=== PATIENT | female | born 1965 | race Caucasian/White ===

== ENCOUNTER → 2024-11-26 | Outpatient (CLI) | payer SELFPAY | END | disposition home or self-care (01) | PROVIDERS: PCP Family Medicine; Visit Provider Physician Assistant | DX: R30.0 Dysuria (principal) | CPT/HCPCS: 87086 ==

== ENCOUNTER 2024-11-28 02:45 | Emergency (ER) | payer OTHER, SELFPAY ==
--- NOTE | 2024-11-28 03:40 | CT_ITS ---
EXAM: CT scan of the abdomen and pelvis. CLINICAL HISTORY: Bilateral back pain. COMPARISON: None. TECHNIQUE: Axial CT scan images with intravenous contrast. Reformatted coronal and sagittal images. One or more dose reduction techniques were used (e.g., Automated exposure control, adjustment of the mA and/or kV according to patient size, use of iterative reconstruction technique. CONTRAST: 100 cc of Isovue-300 50 were injected intravenously. FINDINGS: Prior splenectomy. Mildly enlarged/edematous pancreatic tail, possibly mild changes of acute pancreatitis. Thickened stomach, probably gastritis. Uncomplicated colonic diverticulosis. Hepatic steatosis. The visualized lung bases are unremarkable. Normal gallbladder and extrahepatic biliary system. Normal bilateral adrenal glands. Normal size of the right kidney. There is no right renal mass. There are no right renal calculi. There is no right hydronephrosis. Normal visualized right ureter. Normal size of the left kidney. There is no left renal mass. There are no left renal calculi. There is no left hydronephrosis. Normal visualized left ureter. Normal small intestine. The appendix is visualized and appears normal. There is no demonstrated peritoneal fluid. Calcified atheromatous plaques of the abdominal aorta. Normal inferior vena cava. Normal retroperitoneum. Normal urinary bladder. There is no pelvic mass lesion or lymphadenopathy. There is no pelvic fluid. Normal abdominal wall. Diffuse spondylosis. CT/Abdomen/Pelvis WITH Contrast IMPRESSION: Prior splenectomy. Mildly enlarged/edematous pancreatic tail, possibly mild changes of acute pancr eatitis. Thickened stomach, probably gastritis. Uncomplicated colonic diverticulosis. Hepatic steatosis. I discussed the findings with Dr. Poe in the emergency department at 4:20 a.m . EST. Reading Location: [place] [id number]
--- OUTSIDE RECORDS SUMMARY | 2024-11-28 04:31 | XMS RPT_ITS | CCD ---
Author Organization [facility] Care Team Providers Care Filters Assembler Name Role Phone Unavailable Primary Care Provider UnavailKarri Rojas Attending Unavailable Hermilo Mitchell Primary Care Unavailable Hermilo Mitchell Referring Unavailable Karri Rodrigez Attending Unavailable Hermilo Mitchell Primary Care Unavailable Medications Current Medications Medication Drug Class(es) Dates Sig (Normalized) Sig (Original) ofloxacin 3 mg/ml otic solution (1 source) Quinolone Antimicrobial Start: 07-24-2023 End: 07-31-2023 ofloxacin (FLOXIN) 0.3 % otic solution Use 10 Drops in the left ear once daily for 7 days. 5 mL 0 07/24/2023 07/31/2023 Active Problems Problem Classification Problem Date Documented Da te Episodic/Chronic Genitourinary symptoms and ill-defined conditions (2 sources) Dysuria; Translations: [Dysuria] Onset: 11-26-2024 Episodic Other ear and sense organ disorders (1 source) Impacted cerumen in right ear; Translations: [Impacted cerumen, right ear] 07-24-2023 Episodic Superficial injury; contusion (1 source) Abrasion of ear region; Translations: [Abrasion of left ear, initial encounter] 07-24-2023 Episodic Results Test Name Value Interpretation Reference Range Facil ity Urgent Care Visit Reporton 0 11-26-2024 Urgent Care Visit Report [facility] [address], [address] [place], [place] [address] OFFICE VISIT Date of Service: 11/26/24 MR#: [id number] Acct: [id number] Name: YVONNE SPRAGUE Rep #: [id number] : 1965 Provider: ERNESTINA Alas Age/Sex: 59/F Location: [email or web address] Status: Signed Intake Vital Signs 07/28/23 17:02 11/26/24 14:38 Height 5 ft 3 in BP 112/60 Position Sitting Respiration 16 Pulse 68 Temp 101.8 F H Temp Source Oral Pulse Oximetry (%) 98 Oxygen Delivery Method room air Intake Visit Reasons: CONCERN FOR UTI Accompanied by: Self Allergies No Known Allergies Allergy (Verified 11/26/24 14:47) Medications ???Medication ???Instructions ???Recorded ???Confirmed ???Type ciprofloxacin HCl 500 mg tablet 500 mg PO BID #14 tabs 11/26/24 Rx fluconazole 200 mg tablet 200 mg PO DAILY #1 TAB 11/26/24 Rx Nurse's Note: Patient has concerns for a UTI. Patient states since Monday she can't really pee. Patient also states that she itches down there and she thinks she has itched herself raw. Patient has tried Azo on sat and stopped it yesterday and it didn't help. Patient also has tried Azo yeast and itch and that is 3 times a day and she can tell when its about time to take another one. Patient states she also used a Monastat 7 day 1 use cream. Patient states the pain isn't as bad. Patient has a fever. [facility] Social History (Updated 07/28/23 @ 16:57 by Angela Angeles) Smoking Status: Current every day smoker tobacco type: cigarettes alcohol intake: never HPI HPI Details: YVONNE SPRAGUE, is a 59 F who presents to the office today for initial evaluation at the [facility] for approximately 4 day history of vaginal pruritus (assisted w/ Monistat) and dysuria and urinary frequency with suprapubic pressure and right mid-low back pain and fever. No complaints of fever, chills, sweats, lightheadedness/dizzi ness, nausea/vomiting, chest pain/shortness of breath/dyspnea on exertion, or midback pain. No changes in color/ character of urine or stool; no urethral/ vaginal discharge. AZO tried w/o assist. No other associated symptoms and no alleviating/aggravati ng factors. ROS Const Constitutional: No other (As above) Exam Const General: cooperative, healthy appearing and no acute distress; warm to touch Orientation: alert, awake Chest Chest palpation inspection: normal inspection of the chest Resp Effort Inspection: normal respiratory effort and able to speak in complete sentences Cardio Rate: regular rate Pulses: radial pulses present GI Inspection: normal to inspection Palpation: soft and tender suprapubic (Patient describes upon self-palpation) General: R CVA tenderness Skin General: no rashes or lesions noted Neuro General: patient alert, patient awake Cognition: normal cognition Speech: speech normal Psych Appearance: grossly normal Mental Status: mental status grossly normal Mood: congruent mood Affect: normal affect Speech and Movement: speech and movement normal Attitude: cooperative Diagnoses Urinary tract infection with hematuria N39.0 Assessment and Plan Assessment and Plan (1) Urinary tract infection with hematuria: Status: Acute Plan: See POC results; urine sent to lab for C/S. Cipro and Diflucan (after Cipro completed if vaginal osmar symptoms persist) as prescribed today. Supportive measures as instructed today. Follow-up with PCP in 2-3 days should symptoms not improve, ED sooner should symptoms only worsen or any other concerns develop. Patient states acknowledging understanding all the above. Results POC Urinalysis Dip (Clinic) Office Urine Color YELLOW Last Edit by Ariadna Erickson MA on 11/26/24 14:53 Office Urine Clarity Clear Last Edit by Ariadna Erickson MA on 11/26/24 14:53 Office Urine Glucose Negative Last Edit by Ariadna Erickson MA on 11/26/24 14:53 Office Urine Ketones Negative Last Edit by Ariadna Erickson MA on 11/26/24 14:53 Off Ur Spec [place] 1.010 Last Edit by Ariadna Erickson MA on 11/26/24 14:53 Office Urine pH 6.5 Last Edit by Ariadna Erickson MA on 11/26/24 14:53 Office Urine Bilirubin Negative Last Edit by Ariadna Erickson MA on 11/26/24 14:53 Office Urine Urobilinogen 0.2 mg/dL Last Edit by Ariadna Erickson MA on 11/26/24 14:53 Office Urine Blood Hemolyzed Last Edit by Ariadna Erickson MA on 11/26/24 14:53 Office Urine Blood Hemolyzed Large Last Edit by Ariadna Erickson MA on 11/26/24 14:53 Office Urine Protein Trace Last Edit by Ariadna Erickson MA on 11/26/24 14:53 Office Urine Nitrate Negative Last Edit by Ariadna Erickson MA on 11/26/24 14:53 Off Ur Leukocytes Positive Last Edit by Ariadna Erickson MA on 11/26/24 14:53 Coding Level of Care Code Off vis,est,level 3 Assessment and Plan Assessment and P (more content not included)... Normal [facility] CNOVon 07-24-2023 CNOV Office Visit ([facility] ) YVONNE SPRAGUE ([id number]) 1965 F Date Time Provider Department 07/24/23 4:45 PM NORBERT COSME [facility] During your visit today, we recorded the following information about you: Temperature Pulse Respiration Blood pressure 98.9 degrees 90/minute 16/minute 122/74 Weight 53.8 kg Norbert Cosme PA-C 07/24/2023 5:15 PM Signed Use Debrox drops over the counter in the right ear for a week. May return her to have the ear flushed again or followup with ent. Norbert Cosme PA-C 07/24/2023 5:23 PM Signed This note was created using [employer]ero[employer]. Subjective Yvonne Sprague is a 58 year old female. HPI Patient presents with bilateral ears feeling plugged off-and-on for the past month. She had tried to flush your ears 2 to 3 weeks ago with a home kit. She states the left one is a little painful as well. No cough, runny nose or congestion. No sore throat. No fever. She does have some decreased hearing in her ears. She has had problems with earwax previously. Review of Systems Constitutional: Negative. HENT: Positive for ear discharge, ear pain and hearing loss. Negative for congestion, postnasal drip, rhinorrhea, sinus pressure, sinus pain and sore throat. Respiratory: Negative. Cardiovascular: Negative. Gastrointestinal: Negative. All other systems reviewed and are negative. PAST MEDICAL HISTORY Diagnosis Date NEGATIVE MEDICAL HISTORY Current Outpatient Medications Medication Sig Dispense Refill ofloxacin (FLOXIN) 0.3 % otic solution Use 10 Drops in the left ear once daily for 7 days. 5 mL 0 No current facility-administered medications for this visit. PAST SURGICAL HISTORY Procedure Laterality Date LIG/TRNSXJ FLP TUBE ABDL/VAG APPR UNI/BI Tubal ligation PAST SURGICAL HISTORY OF left lower leg surgery SPLENECTOMY TOTAL SEPARATE PROCEDURE Splenectomy No family history on file. Social History Tobacco Use Smoking status: Every Day Packs/day: 0.50 Years: 20.00 Additional pack years: 0.00 Total pack years: 10.00 Types: Cigarettes Substance Use Topics Alcohol use: Yes Comment: rarely Drug use: No Objective BP 122/74 Pulse 90 Temp 37.2 ?C (98.9 ?F) Resp 16 Wt 53.8 kg (118 lb 9.7 oz) LMP 09/29/2006 SpO2 100% Physical Exam Vitals reviewed. Constitutional: Appearance: Normal appearance. HENT: Head: Normocephalic and atraumatic. Right Ear: There is impacted cerumen. Ears: Comments: Has a partial impaction of the left external auditory canal. TM is visible and intact. No middle ear effusion. Right ear has a total impaction, not able to see TM on the right. Nose: Nose normal. Cardiovascular: Rate and Rhythm: Normal rate and regular rhythm. Skin: General: Skin is warm and dry. Neurological: Mental Status: She is alert. Assessment and Plan ASSESSMENT/PLAN: 1. Impacted cerumen of right ear - ICD9: 380.4, ICD10: H61.21 (primary diagnosis) Attempted to have nursing staff flush the ear with warm water. Not able to remove the impaction on the right side, small abrasion noted after flushing on the left side. I will place her on ofloxacin in the left ear and discussed getting Debrox for the impaction on the right. May come back in a week after using the Debrox to have it flushed again or follow-up with ENT. Patient agreeable with plan. - CONSULT TO ENT 2. Abrasion of left ear canal, initial encounter - ICD9: 910.0, ICD10: S00.412A JANNY Doran Melissa, MA 07/24/2023 5:21 PM Signed Ambulatory Ear Lavage Pre-treatment: Warm water Treatment: Both ears Equipment and Irrigation solution and Volume used: Single use syringe with single use irrigation tip Water Return flow appearance: Other removed nothing Patient tolerated procedure: yes Tympanic membrane assessment: Tympanic membrane assessed by LIP pre and post procedure Danii Roque MA Allergies As of Date: 07/24/2023 (No Known Allergies) Date Reviewed: 07/24/2023 Reviewed by: Danii Roque MA - Fully Assessed Reason for Visit: Ear Problem [38] Cmt: bilateral ears plugged off and on x couple weeks Primary Visit Diagnosis:Impacted cerumen of right ear [H61.21] Other Visit Diagnosis:Abrasion of left ear canal, initial encounter [S00.412A] Order(s):ofloxacin (FLOXIN) 0.3 % otic solutionUse 10 Drops in the left ear once daily for 7 days.Disp: 5 mLRfl: 0 CONSULT TO ENT [9008] Order #: [id number]: 1 FUTURE Prescriptions as of 07/24/2023 - ofloxacin (FLOXIN) 0.3 % otic solution Use 10 Drops in the left ear once daily for 7 days. Problem List As Of Date: 07/24/2023 (None) Other instructions from your clinician: Use Debrox drops over the counter in the right ear for a week. May return her to have the ear flushed again or followup with ent. Visit Notes: >> Danii Roque MA Mon July 24, 2023 5:20 PM Status: Signed Ambu (more content not included)... Normal [facility] Vital Signs Date Time Vital Sign Value Performing Clinician Trell barbosa 07-24-2023 16:47-0400 Body temperature 98.91 [degF] Norbert Cosme PA-C Work Phone: [facility] 07-24-2023 16:47-0400 Body weight 53.8 kg Norbert Cosme PA-C Work Phone: [facility] 07-24-2023 16:47-0400 Diastolic blood pressure 74 mm[Hg] Norbert Cosme PA-C Work Phone: [facility] 07-24-2023 16:47-0400 Heart rate 90 /min Norbert Cosme PA-C Work Phone: [facility] 07-24-2023 16:47-0400 Respiratory rate 16 /min Norbert Cosme PA-C Work Phone: [facility] 07-24-2023 16:47-0400 SaO2% (BldA) [Mass fraction] 100 % Norbert Cosme PA-C Work Phone: [facility] 07-24-2023 16:47-0400 Systolic blood pressure 122 mm[Hg] Norbert Cosme PA-C Work Phone: [facility] Encounters Encounter Date Encounter Type Care Provider Facility Start: 11-26-2024 End: 11-26-2024 ambulatory Karri Cruz Vachristy Facility:[facility] Start: 07-24-2023 End: 07-24-2023 ambulatory Facility:[facility] Start: 07-24-2023 End: 07-24-2023 Patient encounter procedure Norbert Cosme PA-C Work Phone: [facility] Comment on above: Impacted cerumen of right ear (Primary Dx); Abrasion of left ear canal, initial encounter Plan of Treatment Date Care Activity Detail Author Start: 12-12-2028 Urine microalbumin profile DTaP,Tdap,Td Vaccine (2 - Td or Tdap) [facility] Start: 03-06-2023 Behavioral Health Screening Behavioral Health Screening [facility] Start: 11-04-2022 Covid-19 Vaccine ( season) Covid-19 Vaccine ( season) [facility] Start: 04-27-2022 Shingrix Vaccine (2 of 2) Shingrix V accine (2 of 2) [facility] Start: 12-13-2019 Pneumococcal vaccination Pneum ococcal Vaccine (2 of 2 - PCV) [facility] Start: 08-04-2011 Screening for malign ant neoplasm of cervix [facility] Start: 2010 Diabetes Screening Diabetes Screenin g [facility] Start: 2010 Lipid panel Lipid Screening [facility] Start: 2010 Screening for malign ant neoplasm of colon [facility] Start: 08-19-2007 Screening for malign ant neoplasm of breast Mammogram Screening [facility] Start: 1984 Hepatitis B Vaccine (1 of 3 - 19+ 3-dose series) Hepatitis B Vaccine (1 of 3 - 19+ 3-dose series) [facility] Start: 1983 Hepatitis C screening Hepatitis C Sc adriano [facility] Start: 1983 HIV screening HIV Screening Anjelica michele [facility] Payers Date Payer Category Payer Self-pay 2024 Self-pay [id number] 2022 Unknown [employer] [id number] 2022-Present [phone] [address] [place] [address] Other [id number] 2022 Unknown [id number] Unknown [id number] Unknown [id number] Social History Date Type Detail Facility Start: 08-03-2006 Tobacco smoking stat [facility] Smokes tobacco daily [facility] Start: 08-03-2006 Cigarettes smoked cu rrent (pack per day) - Reported 0.5 [facility] Start: 10-20-2021 Alcohol intake Current drinke r of alcohol (finding) [facility] Start: 1965 Sex Assigned At Not on file [facility] Gender identity Not on file [facility] inic Progress note 07-24-2023 Note Date & Type Note Facility 07-24-2023 Note HNO ID: [id number] Author: NORBERT COSME PA-C Service: ? Author Type: Physician [employer] Type: Progress Notes Filed: 07/24/2023 17:23 Note Text: This note was created using NoteWriter. Subjective Yvonne Sprague is a 58 year old female. HPI Patient presents with bilateral ears feeling plugged off-and-on for the past month. She had tried to flush your ears 2 to 3 weeks ago with a home kit. She states the left one is a little painful as well. No cough, runny nose or congestion. No sore throat. No fever. She does have some decreased hearing in her ears. She has had problems with earwax previously. Review of Systems Constitutional: Negative. HENT: Positive for ear discharge, ear pain and hearing loss. Negative for congestion, postnasal drip, rhinorrhea, sinus pressure, sinus pain and sore throat. Respiratory: Negative. Cardiovascular: Negative. Gastrointestinal: Negative. All other systems reviewed and are negative. PAST MEDICAL HISTORY Diagnosis Date NEGATIVE MEDICAL HISTORY Current Outpatient Medications Medication Sig Dispense Refill ofloxacin (FLOXIN) 0.3 % otic solution Use 10 Drops in the left ear once daily for 7 days. 5 mL 0 No current facility-administered medications for this visit. PAST SURGICAL HISTORY Procedure Laterality Date LIG/TRNSXJ FLP TUBE ABDL/VAG APPR UNI/BI Tubal ligation PAST SURGICAL HISTORY OF left lower leg surgery SPLENECTOMY TOTAL SEPARATE PROCEDURE Splenectomy No family history on file. Social History Tobacco Use Smoking status: Every Day Packs/day: 0.50 Years: 20.00 Additional pack years: 0.00 Total pack years: 10.00 Types: Cigarettes Substance Use Topics Alcohol use: Yes Comment: rarely Drug use: No Objective BP 122/74 Pulse 90 Temp 37.2 ?C (98.9 ?F) Resp 16 Wt 53.8 kg (118 lb 9.7 oz) LMP 09/29/2006 SpO2 100% Physical Exam Vitals reviewed. Constitutional: Appearance: Normal appearance. HENT: Head: Normocephalic and atraumatic. Right Ear: There is impacted cerumen. Ears: Comments: Has a partial impaction of the left external auditory canal. TM is visible and intact. No middle ear effusion. Right ear has a total impaction, not able to see TM on the right. Nose: Nose normal. Cardiovascular: Rate and Rhythm: Normal rate and regular rhythm. Skin: General: Skin is warm and dry. Neurological: Mental Status: She is alert. Assessment and Plan ASSESSMENT/PLAN: 1. Impacted cerumen of right ear - ICD9: 380.4, ICD10: H61.21 (primary diagnosis) Attempted to have nursing staff flush the ear with warm water. Not able to remove the impaction on the right side, small abrasion noted after flushing on the left side. I will place her on ofloxacin in the left ear and discussed getting Debrox for the impaction on the right. May come back in a week after using the Debrox to have it flushed again or follow-up with ENT. Patient agreeable with plan. - CONSULT TO ENT 2. Abrasion of left ear canal, initial encounter - ICD9: 910.0, ICD10: S00.412A Norbert Cosme PA-C [facility] Nurse Note 07-24-2023 Danii Roque MA - 07/24/2023 5:20 PM EDT Note Date & Type Note Facility 07-24-2023 Nurse Note Ambulatory Ear Lavage Pre-treatment: Warm water Treatment: Both ears Equipment and Irrigation solution and Volume used: Single use syringe with single use irrigation tip Water Return flow appearance: Other removed nothing Patient tolerated procedure: yes Tympanic membrane assessment: Tympanic membrane assessed by LIP pre and post procedure Danii Roque MA [facility] Nurse Note 07-24-2023 Danii Roque MA - 07/24/2023 5:20 PM EDT Note Date & Type Note Facility 07-24-2023 Nurse Note Ambulatory Ear Lavage Pre-treatment: Warm water Treatment: Both ears Equipment and Irrigation solution and Volume used: Single use syringe with single use irrigation tip Water Return flow appearance: Other removed nothing Patient tolerated procedure: yes Tympanic membrane assessment: Tympanic membrane assessed by LIP pre and post procedure Danii Roque MA documented in this encounter [facility] History of Present illness Narrative 07-24-2023 Norbert Cosme PA-C - 07/24/2023 5:19 PM EDT Note Date & Type Note Facility 07-24-2023 History of Presen t illness Narrative This note was created using NoteWriter. Subjective Yvonne Sprague is a 58 year old female. HPI Patient presents with bilateral ears feeling plugged off-and-on for the past month. She had tried to flush your ears 2 to 3 weeks ago with a home kit. She states the left one is a little painful as well. No cough, runny nose or congestion. No sore throat. No fever. She does have some decreased hearing in her ears. She has had problems with earwax previously. Review of Systems Constitutional: Negative. HENT: Positive for ear discharge, ear pain and hearing loss. Negative for congestion, postnasal drip, rhinorrhea, sinus pressure, sinus pain and sore throat. Respiratory: Negative. Cardiovascular: Negative. Gastrointestinal: Negative. All other systems reviewed and are negative. PAST MEDICAL HISTORY Diagnosis Date NEGATIVE MEDICAL HISTORY Current Outpatient Medications Medication Sig Dispense Refill ofloxacin (FLOXIN) 0.3 % otic solution Use 10 Drops in the left ear once daily for 7 days. 5 mL 0 No current facility-administered medications for this visit. PAST SURGICAL HISTORY Procedure Laterality Date LIG/TRNSXJ FLP TUBE ABDL/VAG APPR UNI/BI Tubal ligation PAST SURGICAL HISTORY OF left lower leg surgery SPLENECTOMY TOTAL SEPARATE PROCEDURE Splenectomy No family history on file. Social History Tobacco Use Smoking status: Every Day Packs/day: 0.50 Years: 20.00 Additional pack years: 0.00 Total pack years: 10.00 Types: Cigarettes Substance Use Topics Alcohol use: Yes Comment: rarely Drug use: No Objective BP 122/74 Pulse 90 Temp 37.2 C (98.9 F) Resp 16 Wt 53.8 kg (118 lb 9.7 oz) LMP 09/29/2006 SpO2 100% Physical Exam Vitals reviewed. Constitutional: Appearance: Normal appearance. HENT: Head: Normocephalic and atraumatic. Right Ear: There is impacted cerumen. Ears: Comments: Has a partial impaction of the left external auditory canal. TM is visible and intact. No middle ear effusion. Right ear has a total impaction, not able to see TM on the right. Nose: Nose normal. Cardiovascular: Rate and Rhythm: Normal rate and regular rhythm. Skin: General: Skin is warm and dry. Neurological: Mental Status: She is alert. Assessment and Plan ASSESSMENT/PLAN: 1. Impacted cerumen of right ear - ICD9: 380.4, ICD10: H61.21 (primary diagnosis) Attempted to have nursing staff flush the ear with warm water. Not able to remove the impaction on the right side, small abrasion noted after flushing on the left side. I will place her on ofloxacin in the left ear and discussed getting Debrox for the impaction on the right. May come back in a week after using the Debrox to have it flushed again or follow-up with ENT. Patient agreeable with plan. - CONSULT TO ENT 2. Abrasion of left ear canal, initial encounter - ICD9: 910.0, ICD10: S00.412A Norbert Cosme PA-C documented in this encounter [facility] Instructions 07-24-2023 Patient Instructions Note Date & Type Note Facility 07-24-2023 Instructions Norbert Cosme PA-C - 07/24/2023 5:15 PM EDT Use Debrox drops over the counter in the right ear for a week. May return her to have the ear flushed again or followup with ent. documented in this encounter [facility] Evaluation note Note Date & Type Note Facility Evaluation note Diagnosis Impacted cerumen of right ear- Primary Impacted cerumen Abrasion of left ear canal, initial encounter documented in this encounter [facility] Reason for Referral Specialty Diagnoses / Procedures Referred By Billy cruz Referred To Contact Ent - Otolaryngology Diagnoses Impacted cerumen of right ear Procedures CONSULT TO ENT OFFICE/OUTPATIENT [facility] 60 MINUTES Norbert Cosme PA-C [address] [place] [address] Referral ID Status Reason Start Date Expiration Date Visits Requested Visits Authorized [id number] Authorized PCP Requested Referral 07/24/2023 07/23/2024 1 1 Summary Purpose Family History No Family History Records FoundNo Family History Records Found Advance Directives No Advanced Directives Records FoundNo Advanced Directives Records Found Additional Source Comments Source Comments (unrecognize d section and content) In the event this informatio n is protected by the Federal Confidentiality of Alcohol and Drug Abuse Patient Records regulations: The Federal rules restrict any use of the information to criminally investigate or prosecute any alcohol or drug abuse patient.[facility] Reason for Visit (unrecogniz ed section and content) Reason Comments Ear Problem bilateral ears plugg ed off and on x couple weeks INFORMATION SOURCE (unrecogn ized section and content) DATE CREATED AUTHOR 07/26/2023 [facility] DATE CREATED AUTHOR AUTHOR'S ORGANIZ ATION 11/27/2024 [facility] FOR RECORDS PERTAINING TO PATIENTS WHO ARE OR HAVE BEEN ENROLLED IN A CHEMICAL DEPENDENCY/SUBSTANCEABUSE PROGRAM, SOME INFORMATION MAY BE OMITTED. This clinical summary was aggregated from multiple sources. Caution should be exercised in using it in the provision of clinical care. This summary normalizes information from multiple sources, and as a consequence, information in this document may materially change the coding, format and clinical context of patient data. In addition, data may be omitted in some cases. CLINICAL DECISIONS SHOULD BE BASED ON THE PRIMARY CLINICAL RECORDS. [employer] [facility]. provides no warranty or guarantee of the accuracy or completeness of information in this document.
[2024-11-28 06:03] LABS: AST(SGOT) 67 U/L (<=31); Alanine Aminotransfer ALT/SGPT 55 U/L (<=34); Albumin, Serum 4.2 g/dL (3.5-5.0); Alkaline Phosphatase 96 U/L (35-104); Anion Gap 13 (5-15); BUN 8 mg/dL (4-19); BUN/Creat Ratio 12.3 RATIO (10-20); Calcium,Total 9.6 mg/dL (7.6-11.0); Carbon Dioxide 22.5 mmol/L (21.0-32.0); Chloride 99 mmol/L (98-108); Globulin 3.3 g/dL (2.2-4.2); Glucose 131 mg/dL (70-99); Lipase 30 U/L (13-75); Potassium 4.0 mmol/L (3.3-5.1)
[2024-11-28 06:05] LABS: Color, Urine Yellow (Yellow); Glucose, Dipstick NEGATIVE (Normal); Ketone-Dipstick Negative (Negative); Leukocyte Esterase-Dipstick 500 /ul (Negative); Mucous, Urine 1+ /hpf (<or=2+); Nitrite-Dipstick Negative (Negative); Occult Blood-Urine 250 /ul (Negative); Protein-Dipstick 30 mg/dl (Negative); Red Blood Cells-Urine 10-25 SEEN /hpf (0-5); Specific Gravity, Urine 1.020 (1.002-1.030); Squamous Epithelial Cells - UA 0-5 SEEN /hpf (5-10); Urine Bilirubin Dipstick Negative (Negative)
[2024-11-28 06:12] LABS: Hematocrit 42.5 % (37-47); Hemoglobin 14.9 g/dL (12.0-15.0); Immature Granulocytes Count 0.070 X10^3/uL (0.0-0.0); Mean Corp Hgb Conc 35.1 g/dL (32-36); Mean Corpuscular Volume 88.7 fL (81-99); Mean Platelet Vol. 10.0 fl (6.2-12.0); NRBC Flagged by Analyzer 0 % (0-5); POSITIVE COUNT YES; POSITIVE MORPHOLOGY YES; Platelet Count 307 K/mm3 (150-450); RBC Distribution Width CV 14.4 % (11.6-14.6); RBC Distribution Width SD 46.5 fl (35.1-43.9); Red Blood Count 4.79 M/mm3 (4.2-5.4); White Blood Count 9.9 K/mm3 (4.4-11.0)
[2024-11-28 06:13] LABS: Anisocytosis 1+; Differential Comment SCANNED; Differential Indicated SCAN CRITERIA MET; Howell-Jolly Body 1+; Polychromasia 1+
--- NOTE | 2024-11-28 06:21 | EDS_ITS ---
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 She states that on Monday she noticed urinary frequency and dysuria. She states that she tried taking [id number] Azo and cranberry pills and flushing her system. She states there was no improvement by Monday so she went to an urgent care. She states she was informed she has a urinary tract infection and was placed on Cipro. She states she has had the antibiotic for 2 days but she feels like her symptoms are worsening and secondary to this comes in for evaluation. PFSH PFSH no medical history Home Medications ?Medication ?Instructions ?Recorded ?Last Taken ?Type ciprofloxacin HCl 500 mg tablet 500 mg PO BID #14 tabs 11/26/24 Unknown Rx fluconazole 200 mg tablet 200 mg PO DAILY #1 TAB 11/26 Unknown Rx Allergy/AdvReac Type Severity Reaction Status Date / Time No Known Allergies Allergy Verified 11/26/24 14:47 Social History (Updated 07/28/23 @ 16:57 by Angela Angeles) Smoking Status: Current every day smoker tobacco type: cigarettes alcohol intake: never ROS ROS ED Constitutional Constitutional ED: Reports chills and fever(s) ENT ENT ED: Denies sore throat Cardiovascular Cardiovascular: Denies chest pain Respiratory/Chest Respiratory/Chest: Denies cough or dyspnea Gastrointestinal Gastrointestinal: Reports abdominal pain and nausea; Denies diarrhea or vomiting Genitourinary Genitourinary ED: Reports dysuria and urinary frequency; Denies hematuria Musculoskeletal Musculoskeletal: Reports back pain and myalgias Integumentary Denies rash Neurologic Neurologic: Denies headache(s) Hematologic/Lymphatic Hematologic/Lymphatic: Denies easy bleeding or easy bruising EXAM Physical Exam Const Positive well nourished and well developed General Appearance ED: well developed; Negative for pallor HEENT HEENT Narrative: Normocephalic atraumatic Eyes PERRL and EOMs intact bilaterally General Eye ED: Negative for scleral icterus Neck supple Neck Narrative: No nuchal rigidity or meningeal signs Resp normal respiratory effort and clear to auscultation bilaterally Cardio regular rate and regular rhythm Rate: other Other Details: Regular rate and rhythm without murmurs rubs or gallops Radial and carotid pulses are equal and symmetric GI non-distended and no masses GI Narrative: Abdomen is soft and nondistended with hyperactive bowel sounds. There is mild pain with palpation in the suprapubic region. No voluntary guarding or rigidity or pulsatile mass. No organomegaly to suggest urinary retention. Auscultation: hyperactive bowel sounds Palpation: soft Back/Spine Back/Spine Narrative: Positive bilateral CVA pain noted Extremity normal to inspection Neuro oriented x3, CN's II-XII intact bilaterally and no sensory deficits noted Sensorium / Orientation: alert Motor Exam: strength 5/5 throughout Psych mental status grossly normal Skin no rashes or lesions noted and no wounds Skin Narrative: No overlying soft tissue changes to suggest trauma or infection General Skin Exam: Negative for jaundice or pallor MDM MDM MDM Narrative Medical decision making narrative: Patient arrived to the ER with stable vitals. She reported 6 days of urinary symptoms such as urgency frequency and dysuria. She reports that she has had antibiotics for 2 days without symptom improvement and now is reporting bilateral back pain. Differential diagnosis is for drug-resistant UTI leading to pyelonephritis versus potential acute kidney injury biliary colic pancreatitis or urosepsis. Secondary to this basic labs were obtained with repeat urine sample and CT scan with IV contrast. White count is normal at 9.9 there is no left shift as her neutrophil count is 6.3 this coupled with stable blood pressure and no fever would go against development of systemic infection/sepsis. There is no sign of acute kidney injury or electrolyte abnormality. Lipase is normal at 30 going against pancreatitis. Urine sample however still shows changes consistent with infection. The CT scan revealed no sign of kidney stone or fat stranding around the kidneys. The radiologist did mention fullness of the pancreas which could correlate with early pancreatitis. However the patient does not have pain in the mid epigastric region and her lipase is normal and therefore this does not clinically correlate. Therefore at this time as she does not have SHAQUILLE or urosepsis and CT scan does not reveal any sign of obstruction or perforation or abscess the patient will be started on Rocephin in the ER. She was advised to stop the Cipro and begin Bactrim and the urine was sent for culture. However at this time with stable vitals no signs of urosepsis or SHAQUILLE do not feel she warrants inpatient treatment and can be tried on a new outpatient regimen History & Record Review Discussion w/independent historian: Patient Lab Data Attestation: I reviewed the patient's lab results. Labs: Laboratory Results - last 24 hr 11/28/24 11/28/24 03:26 03:55 WBC 9.9 RBC 4.79 Hgb 14.9 Hct 42.5 MCV 88.7 MCH 31.1 MCHC 35.1 RDW Std Deviation 46.5 H RDW Coeff of Nan 14.4 Plt Count 307 MPV 10.0 Immature Gran % (Auto) 0.700 Neut % (Auto) 63.8 Lymph % (Auto) 19.2 [place] % (Auto) 10.9 H Eos % (Auto) 5.0 Baso % (Auto) 0.4 Absolute Neuts (auto) 6.3 Absolute Lymphs (auto) 1.90 Nucleated RBC % 0 Differential Comment SCANNED Platelet Estimate ADEQUATE Polychromasia 1+ Anisocytosis 1+ [place] Bodies 1+ Sodium 135 Potassium 4.0 Chloride 99 Carbon Dioxide 22.5 Anion Gap 13 BUN 8 Creatinine 0.62 L Est GFR (MDRD) Non-Af 102 BUN/Creatinine Ratio 12.3 Glucose 131 H Calcium 9.6 Total Bilirubin 0.19 AST 67 H ALT 55 H Alkaline Phosphatase 96 Total Protein 7.5 Albumin 4.2 Globulin 3.3 Albumin/Globulin Ratio 1.3 Lipase 30 Urine Color Yellow Urine Clarity Clear Urine pH 6.0 Ur Specific [place] 1.020 Urine Protein 30 H Urine Glucose (UA) NEGATIVE Urine Ketones Negative Urine Occult Blood 250 H Urine Nitrite Negative Urine Bilirubin Negative Urine Urobilinogen Normal Ur Leukocyte Esterase 500 H Urine RBC 10-25 SEEN Urine WBC 25-50 SEEN Ur Squamous Epith Cells 0-5 SEEN Amorphous Sediment 1+ Urine Bacteria 2+ Urine Mucus 1+ Discharge Plan Triage ED Provider: Arsenio Poe Dx/Rx/DC Orders Clinical Impression: Acute pyelonephritis, Nausea Instructions: ED Pyelonephritis, Female (Adult) Prescriptions: No Action ciprofloxacin HCl 500 mg tablet 500 mg PO BID Qty: 14 0RF fluconazole 200 mg tablet 200 mg PO DAILY Qty: 1 0RF Rx Instructions: do not take until day AFTER completing CIPROFLOXACIN, and only if symptoms of vaginal osmar persist Primary Care Provider: Hermilo Mitchell Referrals: Hermilo Mitchell MD [Primary Care Provider, [facility]] Activity Restrictions/Additional Instructions: Please stop the Cipro as your urine sample still shows signs of infection and therefore the bacteria is most likely resistant to the Cipro. Begin taking the Bactrim as directed to resolve the infection. It will typically take 2 to 3 days for symptom improvement. Return to the ER should you have any further concerns Print Language: [place] Disposition Disposition: Home, Self Care
== END 2024-11-28 05:42 | disposition home or self-care (01) ==
PROVIDERS: Emergency Provider Emergency Medicine; PCP Family Medicine; Visit Provider Emergency Medicine
DX: N10 Acute pyelonephritis (principal); R11.0 Nausea
CPT/HCPCS: 36415; 74177; 80053; 81001; 83690; 85025; 87086; 96365; 96375; 99285; Q9967; A4216; J2405

== ENCOUNTER 2024-12-03 04:22 | Inpatient (IN) | payer OTHER, SELFPAY ==
[2024-12-03] VITALS (15 sets, daily range): BP systolic 85–150; BP diastolic 38–93; PULSE 50–88; RESP 16–18; TEMP 36.4–36.8; O2SAT 92–99; BMI 18.6
--- NOTE | 2024-12-03 04:35 | EDS_ITS ---
HPI History of Present Illness Chief Complaint: Flank Pain Informant: patient Narrative Narrative: Patient is a 59-year-old female history of tobacco use and prior splenectomy presenting as well as recent diagnosis of pyelonephritis (on Bactrim and taking Percocet as needed for pain) presenting with worsening right flank pain. Patient started with UTI symptoms about a week ago and was placed on ciprofloxacin. She was seen in our ER 5 days ago (11/28/2024) and had a workup including lab work, urinalysis and CT of abdomen pelvis with IV contrast. Her workup was concerning for pyelonephritis with urinalysis that showed 2+ bacteria and 25-50 white blood cells however culture ultimately was negative. She had a CT which showed a mildly enlarged/edematous pancreatic tail which could be possible mild she has acute pancreatitis, thickened stomach and uncomplicated colonic diverticulosis as well as fatty liver. Remainder of CT was negative. Patient was discharged home. She states she is not feeling better and has been feeling worse over the past 24 hours. She denies any fevers however since her ER visit. She has constant pain in her right flank/back area as well as wrapping around to her right upper quadrant. She has had nausea and vomiting. She states she has had a lot of belching. She denies any dysuria, frequency or hematuria. Denies any abnormal vaginal discharge or bleeding. Denies any change with movement but notes that sometimes standing helps. She took Percocet at 5 PM last night and then at 1 AM this morning (approximately 3 hours prior to arrival) with no relief which is what prompted her to come to the emergency room. She also took some Zofran about an hour prior to arrival. States her last bowel movement was a couple days ago. States she has been passing gas. No other complaints or concerns at this time. Reports tobacco use as well as occasional alcohol use. Prior similar symptoms: Yes [facility] Medical History History of broken leg Home Medications ?Medication ?Instructions ?Recorded ?Last Taken ?Type fluconazole 200 mg tablet 200 mg PO DAILY #1 TAB 11/26 Unknown Rx Held on 12/03/24. Instructions: after cipro ondansetron 4 mg disintegrating 4 mg PO TID PRN PRN na usea/vomiting 12/03/24 Unknown History tablet oxycodone-acetaminophen 5 mg-325 1 tab PO Q6H PRN PRN pain 12/03/24 Unknown History mg tablet sulfamethoxazole 800 1 tab PO BID 12/03/24 Unknow n History mg-trimethoprim 160 mg tablet Allergy/AdvReac Type Severity Reaction Status Date / Time No Known Allergies Allergy Verified 12/03/24 04:23 Surgical History Hx of splenectomy Hx of hysterectomy Social History Smoking Status: Current every day smoker tobacco type: cigarettes alcohol intake: never ROS ROS ED Constitutional Constitutional ED: Denies chills or fever(s) Cardiovascular Cardiovascular: Denies chest pain Respiratory/Chest Respiratory/Chest: Denies cough or dyspnea Gastrointestinal Gastrointestinal: Reports abdominal pain, nausea and vomiting; Denies diarrhea Genitourinary Genitourinary ED: Denies dysuria, hematuria or urinary frequency Musculoskeletal Musculoskeletal: Reports back pain Integumentary Denies rash Neurologic Neurologic: Denies paresthesias or weakness Hematologic/Lymphatic Hematologic/Lymphatic: Denies easy bleeding or easy bruising EXAM Physical Exam Const Vital Signs: 12/03/24 04:23 12/03/24 04:26 12/03/24 05:26 Temperature 98.1 F 98.1 F 98.1 F Temperature Source Oral Oral Oral Pulse Rate 74 88 65 Respiratory Rate 18 18 16 Blood Pressure 150/90 H 150/93 H 126/73 H Blood Pressure Mean 110 112 90 Pulse Ox 98 99 95 Oxygen Delivery Method Room Air Room Air Room Air 12/03/24 06:00 12/03/24 07:42 Temperature 98.1 F 98.2 F Temperature Source Oral Oral Pulse Rate 66 58 L Respiratory Rate 16 16 Blood Pressure 143/73 H 137/71 H Blood Pressure Mean 96 93 Pulse Ox 98 97 Oxygen Delivery Method Room Air Room Air Positive well nourished and well developed Constitutional Narrative: Uncomfortable. General Appearance ED: well developed HEENT Reports moist mucous membranes Eyes PERRL General Eye ED: Negative for scleral icterus Neck supple Chest Wall inspection of chest normal and palpation of chest normal Resp normal respiratory effort and clear to auscultation bilaterally Cardio regular rate, regular rhythm and no murmurs GI non-distended Inspection: Negative for abdominal distention Auscultation: hypoactive bowel sounds Palpation: soft and tender epigastric and RUQ; Negative for guarding Back/Spine General Back: CVA tenderness right Thoracic Spine / Upper Back: paraspinal muscle tenderness right T9, T10, T11 and T12; Negative for thoracic spinal tenderness Extremity normal to inspection General Extremety ED: Negative for edema General Extremity: Negative for edema Neuro oriented x3 Sensorium / Orientation: alert Motor Exam: Negative for general weakness Psych mental status grossly normal Skin no rashes or lesions noted and no wounds General Skin Exam: Negative for jaundice MDM MDM MDM Narrative Medical decision making narrative: Patient evaluated for continued/worsening right flank pain with prior diagnosis of pyelonephritis. Denies any acute fever. She also had a CT that did show some mild gastritis as well as edema of the pancreas however prior evaluation she is not having upper abdominal pain and had a normal lipase. Patient is given IV morphine for pain control, Zofran and fluids. Will recheck labs including CBC, BMP, liver panel, lipase and urinalysis. Culture reviewed from 11/28 showed no growth. Differential includes pyelonephritis, renal colic, biliary colic, constipation, muscle skeletal pain and pancreatitis. Patient has significant leukocytosis 15.8 with left shift (granulocytes 1.3%). Is elevation of her platelets which is nonspecific. Hemoglobin is normal. CMP is largely normal. Her bilirubin is normal, lipase is normal and alkaline phosphatase is minimally elevated at 112 which is nonspecific with a barely elevated AST of 35. ALT is normal. Urinalysis shows 100 leukocyte esterase 2+ bacteria with some slight contamination. Not sure if she has a partially treated infection at this point. Will resend off urine culture. CT abdomen pelvis is pending. Patient given dose of IV Rocephin given leukocytosis and shift. Urinalysis looks mildly improved. Will resend off her urine culture. Will plan on admission as patient is requiring further morphine for pain control and concern for failure of outpatient treatment with pyelonephritis. Patient is agreeable with this. CT does show findings of gastritis. Given IV Protonix in the emergency room. In addition she has moderate mild fecal residue and some mild stercoral colitis noted. Likely needs GI cleanout. Case discussed with hospitalist for admission, Dr. Mccoy. Lab Data Labs: Laboratory Results - last 24 hr 12/03/24 12/03/24 04:44 05:35 WBC 15.8 H RBC 4.44 Hgb 13.5 Hct 39.9 MCV 89.9 MCH 30.4 MCHC 33.8 RDW Std Deviation 47.9 H RDW Coeff of Nan 14.6 Plt Count 560 H MPV 10.3 Immature Gran % (Auto) 1.300 H Neut % (Auto) 54.1 Lymph % (Auto) 33.2 [place] % (Auto) 7.5 Eos % (Auto) 2.5 Baso % (Auto) 1.4 H Absolute Neuts (auto) 8.6 H Absolute Lymphs (auto) 5.25 H Nucleated RBC % 0 Differential Comment SCANNED Platelet Estimate MOD INC RBC Morphology NORM C+C Sodium 135 Potassium 5.0 Chloride 102 Carbon Dioxide 19.5 L Anion Gap 13 BUN 9 Creatinine 0.68 L Estim Creat Clear Calc 67.08 Est GFR (MDRD) Non-Af 100 BUN/Creatinine Ratio 13.8 Glucose 139 H Lactic Acid 1.1 Calcium 9.3 Total Bilirubin 0.26 Direct Bilirubin < 0.08 AST 35 H ALT 34 Alkaline Phosphatase 112 H Total Protein 7.6 Albumin 3.7 Globulin 3.9 Lipase 26 Urine Color Yellow Urine Clarity Clear Urine pH 6.0 Ur Specific [place] 1.015 Urine Protein Negative Urine Glucose (UA) Normal Urine Ketones Negative Urine Occult Blood 25 H Urine Nitrite Negative Urine Bilirubin Negative Urine Urobilinogen Normal Ur Leukocyte Esterase 100 H Urine RBC 0-5 SEEN Urine WBC 0-5 SEEN Ur Squamous Epith Cells 0-5 SEEN Amorphous Sediment 1+ Urine Bacteria 2+ Urine Mucus 1+ Radiography Diagnostic Testing: Clinical Impression(s) from Imaging Studies Abdomen/Pelvis CT 12/03/24 06:00 IMPRESSION: Prior splenectomy. Thickened stomach, probably gastritis. Uncomplicated colonic diverticulosis. Moderate amount of fecal residue in the large bowels, probably constipation. Associated mild stercoral colitis is noted in the interim. Hepatic steatosis. Interval appearance of mild amount of free fluid in the pelvis. [facility] Discharge Plan Dx/Rx/DC Orders Clinical Impression: Acute flank pain, Failure of outpatient treatment, Acute pyelonephritis, Stercoral colitis, Gastritis Disposition Disposition: [facility]
[2024-12-03] MEDS: 0.9% Normal Saline (1000mL) 1,000 ML 999 ML IV (04:45)
[2024-12-03 04:57] LABS: Hematocrit 39.9 % (37-47); Hemoglobin 13.5 g/dL (12.0-15.0); Immature Granulocytes Count 0.210 X10^3/uL (0.0-0.0); Mean Corp Hgb Conc 33.8 g/dL (32-36); Mean Corpuscular Volume 89.9 fL (81-99); Mean Platelet Vol. 10.3 fl (6.2-12.0); NRBC Flagged by Analyzer 0 % (0-5); POSITIVE DIFFERENTIAL YES; POSITIVE MORPHOLOGY YES; Platelet Count 560 K/mm3 (150-450); RBC Distribution Width CV 14.6 % (11.6-14.6); RBC Distribution Width SD 47.9 fl (35.1-43.9); Red Blood Count 4.44 M/mm3 (4.2-5.4); White Blood Count 15.8 K/mm3 (4.4-11.0)
[2024-12-03 04:59] LABS: Differential Indicated SCAN CRITERIA MET
[2024-12-03 05:15] LABS: Lipase 26 U/L (13-75)
[2024-12-03 05:16] LABS: AST(SGOT) 35 U/L (<=31); Alanine Aminotransfer ALT/SGPT 34 U/L (<=34); Albumin, Serum 3.7 g/dL (3.5-5.0); Alkaline Phosphatase 112 U/L (35-104); Anion Gap 13 (5-15); BUN 9 mg/dL (4-19); BUN/Creat Ratio 13.8 RATIO (10-20); Bilirubin, Direct < 0.08 mg/dL (0.00-0.30); Calcium,Total 9.3 mg/dL (7.6-11.0); Carbon Dioxide 19.5 mmol/L (21.0-32.0); Chloride 102 mmol/L (98-108); Estimated Creatinine Clearance 67.08 ml/min (50-250); Globulin 3.9 g/dL (2.2-4.2); Glucose 139 mg/dL (70-99); Potassium 5.0 mmol/L (3.3-5.1)
[2024-12-03 05:43] LABS: Color, Urine Yellow (Yellow); Glucose, Dipstick Normal (Normal); Ketone-Dipstick Negative (Negative); Leukocyte Esterase-Dipstick 100 /ul (Negative); Nitrite-Dipstick Negative (Negative); Occult Blood-Urine 25 /ul (Negative); Protein-Dipstick Negative (Negative); Specific Gravity, Urine 1.015 (1.002-1.030); Urine Bilirubin Dipstick Negative (Negative)
[2024-12-03 05:49] LABS: Differential Comment SCANNED; Red Cell Morphology NORM C+C NORMAL (NORM C&C)
[2024-12-03 06:00] LABS: Red Blood Cells-Urine 0-5 SEEN /hpf (0-5)
--- NOTE | 2024-12-03 06:00 | CT_ITS ---
PROCEDURE: ABDOMEN/PELVIS W IV CONT ONLY 12/03/2024 REASON FOR EXAM: RIGHT FLANK PAIN, LEUKOCYTOSIS TECHNIQUE: Procedure Code: [id number] Modality: CT Procedure: ABDOMEN/PELVIS W IV CONT ONLY Coronal and Sagittal reconstruction series were provided. CONTRAST: Tortuous for the VOLUME: 100 mL One or more dose reduction techniques were used (e.g., Automated exposure control, adjustment of the mA and/or kV according to patient size, use of iterative reconstruction technique. RADIATION DOSE SUMMARY: CTDlvol: 4.94 mGy DLP: 234 mGycm COMPARISON: CT scan on 11/28/2024. FINDINGS: Prior splenectomy. Thickened stomach, probably gastritis. Uncomplicated colonic diverticulosis. Moderate amount of fecal residue in the large bowels, probably constipation. Associated mild stercoral colitis. Hepatic steatosis. Interval appearance of mild amount of free fluid in the pelvis. The visualized lung bases are unremarkable. Normal gallbladder and extrahepatic biliary system. Normal bilateral adrenal glands. Normal size of the right kidney. There is no right renal mass. There are no right renal calculi. There is no right hydronephrosis. Normal visualized right ureter. Normal size of the left kidney. There is no left renal mass. There are no left renal calculi. There is no left hydronephrosis. Normal visualized left ureter. Normal pancreas. Normal small intestine. The appendix is visualized and appears normal. Calcified atheromatous plaques of the abdominal aorta. Normal inferior vena cava. Normal retroperitoneum. Normal urinary bladder. There is no pelvic mass lesion or lymphadenopathy. Normal abdominal wall. Diffuse spondylosis. CT/Abdomen/Pelvis W IV Cont ONLY IMPRESSION: Prior splenectomy. Thickened stomach, probably gastritis. Uncomplicated colonic diverticulosis. Moderate amount of fecal residue in the large bowels, probably constipation. Associated mild stercoral colitis is noted in the interim. Hepatic steatosis. Interval appearance of mild amount of free fluid in the pelvis. [facility]
[2024-12-03 06:01] LABS: Mucous, Urine 1+ /hpf (<or=2+); Squamous Epithelial Cells - UA 0-5 SEEN /hpf (5-10)
[2024-12-03] MEDS: Pantoprazole Sodium 40 MG in 0.9% Normal Saline (100mL MB+) 100 ML 300 MG IV (08:09)
--- NOTE | 2024-12-03 08:09 | PCM.HP.STD ---
HPI - General General Date of Admission: 12/03/24 Date of Service: 12/03/24 Chief Complaint: Bilateral flank pain, right upper quadrant abdominal pain for 2 weeks HPI Narrative XIOMARA WILLETT, is a 59 F with history of UTI about 2 weeks ago came to ED for bilateral flank pain, diffuse abdominal pain. Patient stated it has been going for 2 weeks after she had a UTI. She was treated for UTI in the urgent care and then ED. Her right flank hurts more than left. She also complained of diffuse abdominal pain predominantly at her right upper and epigastric pain. Denies heartburn reflux symptoms. Abdominal pain is about 7-8/10 intensity, intermittent, progressively worsening with longer duration. Mild nausea but denies vomiting. No fever or chills. She has mild constipation moves her bowel in 2 to 3 days, denies hard stool/diarrhea or blood or mucus. Denies burning micturition or increased frequency. She had taken Cipro which was changed to Bactrim when she came to ED on 11/28 when she was given 1 dose of IV ceftriaxone and discharged on 10 days of Bactrim DS. Denies prior EGD. Had colonoscopy 2 to 3 years ago, outside in [facility] and as per patient was no significant abnormality See had CT abdomen pelvis which more suggestive of stercoral colitis/inflammation with significant stool burden. Currently smoker since early 20s with intermittent clicking during . Less than a pack per day. Couple wine shots on the weekends. Denies substance use [facility] Medical History History of broken leg Home Medications ?Medication ?Instructions ?Recorded ?Last Taken ?Type fluconazole 200 mg tablet 200 mg PO DAILY #1 TAB 11/26/24 Unknown Rx Held on 12/03/24. Instructions: after cipro ondansetron 4 mg disintegrating 4 mg PO TID PRN PRN nausea/vomiting 12/03/24 Unknown History tablet oxycodone-acetaminophen 5 mg-325 1 tab PO Q6H PRN PRN pain 12/03/24 Unknown History mg tablet sulfamethoxazole 800 1 tab PO BID 12/03/24 Unknown History mg-trimethoprim 160 mg tablet Allergy/AdvReac Type Severity Reaction Status Date / Time No Known Allergies Allergy Verified 12/03/24 04:23 Surgical History Hx of splenectomy Hx of hysterectomy Social History Smoking Status: Current every day smoker tobacco type: cigarettes alcohol intake: never ROS ROS Narrative Constitutional: Denies acute fatigue and weakness. No fever. HEENT: Reports systems reviewed and no addt'l complaints, except as documented Respiratory/Chest: No acute shortness of breath or respiratory distress or wheezing. CVS: No chest pain pressure or CAD history Gastrointestinal: Denies coffee ground emesis, hematemesis or vomiting. Nausea abdominal pain is chronic. Genitourinary: Denies burning urination or new urinary tract symptoms. Recent UTI 2 to 3 weeks ago Musculoskeletal: Denies acute joint pain or limited range of motion. No acute injury Neurologic: Denies seizure-like symptoms. skin: No ulcer. No rash Endocrinology: Reports systems reviewed and no addt'l complaints, except as documented Hematologic/Lymphatic: Reports systems reviewed and no addt'l complaints, except as documented Rest 14 ROS are negative except as mentioned in HPI Vital Signs Vital Signs Vital Signs: 12/03/24 04:23 12/03/24 04:26 12/03/24 05:26 Temperature 98.1 F 98.1 F 98.1 F Temperature Source Oral Oral Oral Pulse Rate 74 88 65 Respiratory Rate 18 18 16 Blood Pressure 150/90 H 150/93 H 126/73 H Blood Pressure Mean 110 112 90 Pulse Ox 98 99 95 Oxygen Delivery Method Room Air Room Air Room Air 12/03/24 06:00 12/03/24 07:42 Temperature 98.1 F 98.2 F Temperature Source Oral Oral Pulse Rate 66 58 L Respiratory Rate 16 16 Blood Pressure 143/73 H 137/71 H Blood Pressure Mean 96 93 Pulse Ox 98 97 Oxygen Delivery Method Room Air Room Air Weight Weight: 105 lb 2.568 oz Body Mass Index (BMI) 18.6 Physical Exam Narrative General: Alert, Oriented x3, Cooperative HEENT: Atraumatic, PERRLA, EOMI, Normocephalic. Oral: Oral mucosa dry no Gingival or Mucosal Lesions/ Ulcerations Neck: Supple, No JVD, Negative Carotid Bruits Chest wall/Lungs: Air entry diminished in bilateral lung bases. No crepitation/rhonchi Cardiovascular: Regular rate and rhythm, Normal S1,S2, No M/G/R Abdomen: Bowel Sounds sluggish, Soft, mild tenderness predominantly over epigastric and right upper quadrant region. No rebound tenderness. No distention : No dysuria. Bilateral, R > L, renal angle tenderness. No suprapubic tenderness. Extremities: No edema, Capillary Refill Less than 3 Seconds Skin: No rashes, No breakdown Musculoskeletal: No Tenderness to Palpation of Joints or Extremities Neurological: Cranial nerves II-XII grossly intact, DTR 2+/4. No acute focal neurological deficit. Psych/Mental Status: Normal Affect, Appropriate. Results Lab / Micro Data 12/03/24 04:44 12/03/24 04:44 Labs: Laboratory Results - last 24 hr 12/03/24 04:44: WBC 15.8 H, RBC 4.44, Hgb 13.5, Hct 39.9, MCV 89.9, MCH 30.4, MCHC 33.8, RDW Std Deviation 47.9 H, RDW Coeff of Nan 14.6, Plt Count 560 H, MPV 10.3, Immature Gran % (Auto) 1.300 H, Neut % (Auto) 54.1, Lymph % (Auto) 33.2, [place] % (Auto) 7.5, Eos % (Auto) 2.5, Baso % (Auto) 1.4 H, Absolute Neuts (auto) 8.6 H, Absolute Lymphs (auto) 5.25 H, Nucleated RBC % 0, Differential Comment SCANNED, Platelet Estimate MOD INC, RBC Morphology NORM C+C, Sodium 135, Potassium 5.0, Chloride 102, Carbon Dioxide 19.5 L, Anion Gap 13, BUN 9, Creatinine 0.68 L, Estim Creat Clear Calc 67.08, Est GFR (MDRD) Non-Af 100, BUN/Creatinine Ratio 13.8, Glucose 139 H, Lactic Acid 1.1, Calcium 9.3, Total Bilirubin 0.26, Direct Bilirubin < 0.08, AST 35 H, ALT 34, Alkaline Phosphatase 112 H, Total Protein 7.6, Albumin 3.7, Globulin 3.9, Lipase 26 12/03/24 05:35: Urine Color Yellow, Urine Clarity Clear, Urine pH 6.0, Ur Specific [place] 1.015, Urine Protein Negative, Urine Glucose (UA) Normal, Urine Ketones Negative, Urine Occult Blood 25 H, Urine Nitrite Negative, Urine Bilirubin Negative, Urine Urobilinogen Normal, Ur Leukocyte Esterase 100 H, Urine RBC 0-5 SEEN, Urine WBC 0-5 SEEN, Ur Squamous Epith Cells 0-5 SEEN, Amorphous Sediment 1+, Urine Bacteria 2+, Urine Mucus 1+ Imaging Radiology Impression Abdomen/Pelvis CT 12/03/24 06:00 IMPRESSION: Prior splenectomy. Thickened stomach, probably gastritis. Uncomplicated colonic diverticulosis. Moderate amount of fecal residue in the large bowels, probably constipation. Associated mild stercoral colitis is noted in the interim. Hepatic steatosis. Interval appearance of mild amount of free fluid in the pelvis. Reading [facility] Assessment & Plan Assessment/Plan (1) Stercoral colitis: (2) Acute flank pain: PLAN: Plan Patient is 59-year-old female admitted for bilateral flank pain, generalized abdominal pain and CT showing mild stercoral colitis 1. Bilateral flank pain, right more than left, abdominal pain probably from stercoral colitis, rule out pyelonephritis: Patient is being admitted to [facility] floor. She had CT abdomen with IV contrast in ED, which showed thickened stomach probably gastritis, large amount of fecal residue seen large bowel with mild stercoral colitis, uncomplicated colonic diverticulosis and mild free fluid in the pelvis. Bilateral kidneys no stones or hydronephrosis. Does not seem inflammation/infiltration into perinephric space but not reported in CT. Bilateral kidney and bladder ultrasound, right upper quadrant sonogram ordered. Plan: IV fluid, pain control, antibiotic Unasyn IV and laxatives/stool softener ordered. IV pantoprazole ordered. Urine culture ordered. 2. Mild leukocytosis mainly neutrophils probably due to inflammation/sterile coral colitis. Continue monitor 3. Recent UTI: Patient was on Cipro started in urgent care and then changed to Bactrim DS on 11/28, ED visit. She states currently no increased frequency urgency or burning micturition. No purulent discharge in urine. UA WBC 0-5, RBC 0 LE 100, nitrite negative. 4. DVT prophylaxis, moderate risk: Lovenox 40 mg subcu daily ordered Living will/advanced directive/end of life care: Patient does not have living will or advanced directive. She does not need a power of personal injury attorney for health after discussion of benefits/risks procedures involved with full code, DNR CC arrest and DNR CC, the patient opted for full code. Patient does want artificial life support including intubation, tube feed, ventilator and/chest compression, central venous catheter, vasopressor and DC shock if needed Total time spent in [id number] encounter in discussion of advanced directive 17 minutes. Laboratory Results 12/03/24 04:44: WBC 15.8 H, RBC 4.44, Hgb 13.5, Hct 39.9, MCV 89.9, MCH 30.4, MCHC 33.8, RDW Std Deviation 47.9 H, RDW Coeff of Nan 14.6, Plt Count 560 H, MPV 10.3, Immature Gran % (Auto) 1.300 H, Neut % (Auto) 54.1, Lymph % (Auto) 33.2, [place] % (Auto) 7.5, Eos % (Auto) 2.5, Baso % (Auto) 1.4 H, Absolute Neuts (auto) 8.6 H, Absolute Lymphs (auto) 5.25 H, Nucleated RBC % 0, Differential Comment SCANNED, Platelet Estimate MOD INC, RBC Morphology NORM C+C, Sodium 135, Potassium 5.0, Chloride 102, Carbon Dioxide 19.5 L, Anion Gap 13, BUN 9, Creatinine 0.68 L, Estim Creat Clear Calc 67.08, Est GFR (MDRD) Non-Af 100, BUN/Creatinine Ratio 13.8, Glucose 139 H, Lactic Acid 1.1, Calcium 9.3, Total Bilirubin 0.26, Direct Bilirubin < 0.08, AST 35 H, ALT 34, Alkaline Phosphatase 112 H, Total Protein 7.6, Albumin 3.7, Globulin 3.9, Lipase 26 12/03/24 05:35: Urine Color Yellow, Urine Clarity Clear, Urine pH 6.0, Ur Specific [place] 1.015, Urine Protein Negative, Urine Glucose (UA) Normal, Urine Ketones Negative, Urine Occult Blood 25 H, Urine Nitrite Negative, Urine Bilirubin Negative, Urine Urobilinogen Normal, Ur Leukocyte Esterase 100 H, Urine RBC 0-5 SEEN, Urine WBC 0-5 SEEN, Ur Squamous Epith Cells 0-5 SEEN, Amorphous Sediment 1+, Urine Bacteria 2+, Urine Mucus 1+ Clinical Impression(s) from Imaging Studies Abdomen/Pelvis CT 12/03/24 06:00 IMPRESSION: Prior splenectomy. Thickened stomach, probably gastritis. Uncomplicated colonic diverticulosis. Moderate amount of fecal residue in the large bowels, probably constipation. Associated mild stercoral colitis is noted in the interim. Hepatic steatosis. Interval appearance of mild amount of free fluid in the pelvis. Reading Location: [facility] Charges/Coding Visit Charges Inpatient E&M: 52847 Init Hosp L3 Procedures Hospitalists Procedures: 78109 Advncd Care Plan 30 Min
--- NOTE | 2024-12-03 10:11 | US_ITS ---
PROCEDURE: KIDNEY AND BLADDER 12/03/2024 REASON FOR EXAM: B/L FLANK PAIN TECHNIQUE: Procedure Code: USKI Modality: US Procedure: KIDNEY AND BLADDER COMPARISON: CT dated 11/28/2024 FINDINGS: Right kidney measures 11.7 x 4.7 x 4.2 cm. There is normal renal cortex with no calculi or hydronephrosis. Left kidney measures 10.7 x 4.9 x 5.7 cm. There is normal renal cortex with no stones or hydronephrosis. Urinary bladder are visualized partially distended measuring 77 cc. US/Kidney and Bladder IMPRESSION: Unremarkable kidneys with no obstructive uropathy. Reading Location: [place] [address]
--- NOTE | 2024-12-03 10:11 | US_ITS ---
PROCEDURE: ABDOMEN LIMITED 12/03/2024 REASON FOR EXAM: RUQ/EPIGASTRIC PAIN, BILATERAL FLANK PAIN TECHNIQUE: Procedure Code: USABDL Modality: US Procedure: ABDOMEN LIMITED COMPARISON: None FINDINGS: Liver: Grossly normal size and echotexture. Measures 18.4 cm Gallbladder: No stones, sludge, wall thickening or tenderness. Gallbladder wall measures 1.7 mm, template clerk notes a negative Myers's sign Common bile duct: Normal measuring 5.2 mm. Pancreas: Visualized portions are sonographically unremarkable. Kidneys: The right kidney measures 11.7 cm. No hydronephrosis, calculi or mass, cortex measures 1.0 cm Spleen: Previously removed . US/Abdomen Limited IMPRESSION: No suspicious sonographic findings Reading Location: [id number]
[2024-12-03] MEDS: 0.9% Normal Saline (1000mL) 1,000 ML 100 ML IV ×2 (10:32→23:00)
[2024-12-03] MEDS: Senna/Docusate Sodium 1 Tablet 2 TABLET PO ×2 (10:32→20:16)
[2024-12-03 11:07] LABS: Magnesium 2.3 mg/dL (1.5-2.2)
[2024-12-03] MEDS: Lactated Ringers 1,000 ML 999 ML IV (11:32)
--- NOTE | 2024-12-03 11:55 | NURSING ---
Pt sent to ultrasound
[2024-12-03] MEDS: Ampicillin/Sulbactam 3 GM in 0.9% Normal Saline (100mL MB+) 100 ML IV ×3 (13:28→23:00)
[2024-12-03] MEDS: 0.9% Saline Lock 10 ML Syringe IV ×4 (14:45→22:26)
[2024-12-03] MEDS: MELATONIN 3 MG TABLET PO (20:51)
[2024-12-04 04:50] VITALS: BP 152/66; PULSE 64; RESP 16; TEMP 36.6; O2SAT 97
[2024-12-04] MEDS: 0.9% Saline Lock 10 ML Syringe IV ×5 (04:59→20:31)
[2024-12-04] MEDS: Ampicillin/Sulbactam 3 GM in 0.9% Normal Saline (100mL MB+) 100 ML IV ×3 (05:03→17:42)
[2024-12-04 05:17] VITALS: BMI 18.0
[2024-12-04 06:25] LABS: Hematocrit 36.4 % (37-47); Hemoglobin 12.2 g/dL (12.0-15.0); Immature Granulocytes Count 0.180 X10^3/uL (0.0-0.0); Mean Corp Hgb Conc 33.5 g/dL (32-36); Mean Corpuscular Volume 90.3 fL (81-99); Mean Platelet Vol. 10.1 fl (6.2-12.0); NRBC Flagged by Analyzer 0 % (0-5); POSITIVE MORPHOLOGY YES; Platelet Count 533 K/mm3 (150-450); RBC Distribution Width CV 15.0 % (11.6-14.6); RBC Distribution Width SD 49.5 fl (35.1-43.9); Red Blood Count 4.03 M/mm3 (4.2-5.4); White Blood Count 13.4 K/mm3 (4.4-11.0)
[2024-12-04 06:28] LABS: Differential Indicated SCAN CRITERIA MET
[2024-12-04 07:09] LABS: AST(SGOT) 35 U/L (<=31); Alanine Aminotransfer ALT/SGPT 33 U/L (<=34); Albumin, Serum 3.3 g/dL (3.5-5.0); Alkaline Phosphatase 102 U/L (35-104); Anion Gap 11 (5-15); BUN 6 mg/dL (4-19); BUN/Creat Ratio 11.6 RATIO (10-20); Bilirubin, Direct 0.10 mg/dL (0.00-0.30); Calcium,Total 8.4 mg/dL (7.6-11.0); Carbon Dioxide 20.2 mmol/L (21.0-32.0); Chloride 108 mmol/L (98-108); Estimated Creatinine Clearance 88.36 ml/min (50-250); Globulin 2.9 g/dL (2.2-4.2); Glucose 112 mg/dL (70-99); Potassium 4.2 mmol/L (3.3-5.1)
[2024-12-04 07:17] LABS: Reactive Lymphocyte 2+
[2024-12-04 08:00] VITALS: BP 148/81; PULSE 65; RESP 16; TEMP 36.3; O2SAT 98
[2024-12-04] MEDS: Senna/Docusate Sodium 1 Tablet 2 TABLET PO (08:08)
[2024-12-04] MEDS: Pantoprazole Sodium 40 MG in 0.9% Normal Saline (100mL MB+) 100 ML 330 MG IV (09:07)
[2024-12-04 09:54] VITALS: O2SAT 93
--- NOTE | 2024-12-04 12:21 | CASEMGMT ---
Dx:stercoral colitis LACE:1 6-Clicks:24 Medical record reviewed and patient evaluated for identification of discharge planning needs. Based on this review, at this time criteria are not present to indicate a need for discharge planning. Will remain available to assist with discharge planning needs as identified or requested.
[2024-12-04 14:12] VITALS: BP 122/74; PULSE 82; RESP 16; TEMP 36.3; O2SAT 95
--- NOTE | 2024-12-04 15:57 | PCM.PN.HOSP ---
Reason for Visit Chief Complaint: Bilateral flank pain, right upper quadrant abdominal pain for 2 weeks Objective Data Objective Data Vital Signs: Vital Signs Temp Pulse Resp BP Pulse Ox O2 Del Method 97.3 F L 82 16 122/74 H 95 Room Air 12/04/24 14:12 12/04/24 14:12 12/04/24 14:12 12/04/24 14:12 12/04/24 14:12 12/04/24 14:12 Oxygen Delivery Method Room Air Weight: 101 lb 13.657 oz Body Mass Index (BMI) 18.0 Intake & Output: Intake and Output for Last 24 Hours 12/02/24 12/03/24 12/04/24 23:59 23:59 23:59 Intake Total 4050.00 / 4050.00 1899 Output Total 325 / 325 Balance 3725.00 / 3725.00 1899 Medical Nutrition Assessment Dietitian: Malnutrition Criteria Met Start: 12/03/24 13:47 Freq: Status: Active Protocol: Document 12/03/24 16:22 RMA (Rec: 12/03/24 16:23 RMA [id number]) Nutrition Malnutrition Evidence of Yes Malnutrition Exists Malnutrition ( Acute Illness/Injury,Chronic moderate): Evidenced By Suboptimal Energy Intake (Moderate),Weight Loss ( Moderate),Physical Changes (Moderate) Intake Problem Inadequate Oral Intake Etiology related to altered GI function Signs/Symptoms as evidenced by NPO advanced to full liquid diet Status Active Problem Clinical Problem Acute Disease or Injury Related Malnutrition Etiology Moderate protein-calorie malnutrition in the context of acute on chronic condition related to chewing difficulty and altered GI function Signs/Symptoms as evidenced by edentulous on top plate, NPO/full liquid diet, BMI 18.6, ~9% unintentional weight loss x 12 months, muscle wasting and fat depletion noted in the clavicle, orbitals, temporal region, arms, face, legs and PO meeting less than 75% estimated nutrition needs x past 3-6 months. Status Active Problem Recommendation Dietitian Advance diet as tolerated to Regular; with soft food as Recommendations/ needed. Changes Will add 240mL ensure clear TID w/ meals as tolerated. Trend weight closely and adjust ONS as needed to support weight gain. Lab / Micro Data 12/04/24 06:15 12/04/24 06:15 Labs: Laboratory Results - last 24 hr 12/04/24 06:15: WBC 13.4 H, RBC 4.03 L, Hgb 12.2, Hct 36.4 L, MCV 90.3, MCH 30.3, MCHC 33.5, RDW Std Deviation 49.5 H, RDW Coeff of Nan 15.0 H, Plt Count 533 H, MPV 10.1, Immature Gran % (Auto) 1.300 H, Neut % (Auto) 48.8, Lymph % (Auto) 37.1, [place] % (Auto) 8.1, Eos % (Auto) 3.5, Baso % (Auto) 1.2 H, Absolute Neuts (auto) 6.5, Absolute Lymphs (auto) 4.98 H, Nucleated RBC % 0, Reactive Lymphocytes 2+, Sodium 139, Potassium 4.2, Chloride 108, Carbon Dioxide 20.2 L, Anion Gap 11, BUN 6, Creatinine 0.50 L, Estim Creat Clear Calc 88.36, Est GFR (MDRD) Non-Af 108, BUN/Creatinine Ratio 11.6, Glucose 112 H, Hemoglobin A1c 6.0 H, Calcium 8.4, Total Bilirubin 0.23, Direct Bilirubin 0.10, AST 35 H, ALT 33, Alkaline Phosphatase 102, Total Protein 6.2, Albumin 3.3 L, Globulin 2.9, TSH 4.810 H, Free T4 0.90 Radiography Diagnostic Testing: Radiology Impression Renal Ultrasound 12/03/24 10:11 IMPRESSION: Unremarkable kidneys with no obstructive uropathy. Reading Location: [place] [id number] Physical Exam Narrative Patient complained of right flank pain which extends from lower rib cage to iliac crest. Seems muscular tenderness. Patient moved bowel General: Alert, Oriented x3, Cooperative HEENT: Atraumatic, PERRLA, EOMI, Normocephalic. Oral: Oral mucosa dry no Gingival or Mucosal Lesions/ Ulcerations Neck: Supple, No JVD, Negative Carotid Bruits Chest wall/Lungs: Right rib cage wall muscle tenderness. Air entry diminished in bilateral lung bases. No crepitation/rhonchi Cardiovascular: Regular rate and rhythm, Normal S1,S2, No M/G/R Abdomen: Bowel Sounds sluggish, Soft, tenderness improved on epigastrium. No rebound tenderness. No distention : No dysuria. Bilateral, R > L, renal angle tenderness. No suprapubic tenderness. Extremities: No edema, Capillary Refill Less than 3 Seconds Skin: No rashes, No breakdown Musculoskeletal: No Tenderness to Palpation of Joints or Extremities Neurological: Cranial nerves II-XII grossly intact, DTR 2+/4. No acute focal neurological deficit. Psych/Mental Status: Normal Affect, Appropriate. Assessment & Plan Assessment/Plan (1) Stercoral colitis: (2) Acute flank pain: PLAN: Plan Patient is 59-year-old female admitted for bilateral flank pain, generalized abdominal pain and CT showing mild stercoral colitis 1. Bilateral flank pain, right more than left, abdominal pain probably from stercoral colitis, pyelonephritis ruled out.: Patient is being admitted to [facility] floor. She had CT abdomen with IV contrast in ED, which showed thickened stomach probably gastritis, large amount of fecal residue seen large bowel with mild stercoral colitis, uncomplicated colonic diverticulosis and mild free fluid in the pelvis. Bilateral kidneys no stones or hydronephrosis. Does not seem inflammation/infiltration into perinephric space but not reported in CT. Bilateral kidney and bladder ultrasound, right upper quadrant sonogram ordered. Plan: IV fluid, pain control, antibiotic Unasyn IV and laxatives/stool softener ordered. IV pantoprazole ordered. Urine culture ordered. 12/04: Leukocytosis improving. Patient had good bowel movement continue stool softener. Right upper quadrant sonogram shows surgical cholecystectomy otherwise normal. Renal ultrasound also done reported normal. I think patient has right-sided muscular pain. Continue IV antibiotic for stercoral colitis. Pyelonephritis ruled out. Urine culture pending. 2. Mild leukocytosis mainly neutrophils probably due to inflammation/sterile coral colitis. Continue monitor 3. Recent UTI: Patient was on Cipro started in urgent care and then changed to Bactrim DS on 11/28, ED visit. She states currently no increased frequency urgency or burning micturition. No purulent discharge in urine. UA WBC 0-5, RBC 0 LE 100, nitrite negative. 4. DVT prophylaxis, moderate risk: Lovenox 40 mg subcu daily ordered Living will/advanced directive/end of life care: Patient does not have living will or advanced directive. She does not need a power of geoint analyst for health after discussion of benefits/risks procedures involved with full code, DNR CC arrest and DNR CC, the patient opted for full code. Patient does want artificial life support including intubation, tube feed, ventilator and/chest compression, central venous catheter, vasopressor and DC shock if needed Total time spent in [id number] encounter in discussion of advanced directive 17 minutes. Laboratory Results 12/03/24 04:44: WBC 15.8 H, RBC 4.44, Hgb 13.5, Hct 39.9, MCV 89.9, MCH 30.4, MCHC 33.8, RDW Std Deviation 47.9 H, RDW Coeff of Nan 14.6, Plt Count 560 H, MPV 10.3, Immature Gran % (Auto) 1.300 H, Neut % (Auto) 54.1, Lymph % (Auto) 33.2, [place] % (Auto) 7.5, Eos % (Auto) 2.5, Baso % (Auto) 1.4 H, Absolute Neuts (auto) 8.6 H, Absolute Lymphs (auto) 5.25 H, Nucleated RBC % 0, Differential Comment SCANNED, Platelet Estimate MOD INC, RBC Morphology NORM C+C, Sodium 135, Potassium 5.0, Chloride 102, Carbon Dioxide 19.5 L, Anion Gap 13, BUN 9, Creatinine 0.68 L, Estim Creat Clear Calc 67.08, Est GFR (MDRD) Non-Af 100, BUN/Creatinine Ratio 13.8, Glucose 139 H, Lactic Acid 1.1, Calcium 9.3, Total Bilirubin 0.26, Direct Bilirubin < 0.08, AST 35 H, ALT 34, Alkaline Phosphatase 112 H, Total Protein 7.6, Albumin 3.7, Globulin 3.9, Lipase 26 12/03/24 05:35: Urine Color Yellow, Urine Clarity Clear, Urine pH 6.0, Ur Specific [place] 1.015, Urine Protein Negative, Urine Glucose (UA) Normal, Urine Ketones Negative, Urine Occult Blood 25 H, Urine Nitrite Negative, Urine Bilirubin Negative, Urine Urobilinogen Normal, Ur Leukocyte Esterase 100 H, Urine RBC 0-5 SEEN, Urine WBC 0-5 SEEN, Ur Squamous Epith Cells 0-5 SEEN, Amorphous Sediment 1+, Urine Bacteria 2+, Urine Mucus 1+ Clinical Impression(s) from Imaging Studies Abdomen/Pelvis CT 12/03/24 06:00 IMPRESSION: Prior splenectomy. Thickened stomach, probably gastritis. Uncomplicated colonic diverticulosis. Moderate amount of fecal residue in the large bowels, probably constipation. Associated mild stercoral colitis is noted in the interim. Hepatic steatosis. Interval appearance of mild amount of free fluid in the pelvis. Reading [facility] Charges/Coding Visit Charges Inpatient E&M: 33962 Subs Hosp L2
[2024-12-04] MEDS: Lactated Ringers 1,000 ML 75 ML IV (17:42)
[2024-12-04 20:21] VITALS: BP 131/74; PULSE 73; RESP 18; TEMP 36.6; O2SAT 97
[2024-12-04] MEDS: MELATONIN 3 MG TABLET PO (20:32)
[2024-12-05] MEDS: Ampicillin/Sulbactam 3 GM in 0.9% Normal Saline (100mL MB+) 100 ML IV ×2 (00:20→05:24)
[2024-12-05] MEDS: 0.9% Saline Lock 10 ML Syringe IV (02:08)
[2024-12-05 02:30] VITALS: BP 159/90; PULSE 65; RESP 18; TEMP 36.5; O2SAT 96
[2024-12-05 04:31] VITALS: BP 126/72
[2024-12-05 05:18] VITALS: BMI 20.2
[2024-12-05 08:15] VITALS: BP 108/58; PULSE 72; RESP 16; TEMP 36.9; O2SAT 98
[2024-12-05] MEDS: Senna/Docusate Sodium 1 Tablet 2 TABLET PO (10:03)
[2024-12-05] MEDS: Polyethylene Glycol 3350 17 GM PACKET PO (10:03)
--- NOTE | 2024-12-05 10:37 | DCINST_ITS ---
Discharge Instructions DC O2, CPAP, BIPAP needs Home O2 Discharge instructions: No Dressing / Incision Discharge Activity: Return to Normal Activity Weight Bearing Status: Weight bearing as tolerated Dressing / Incision Call your doctor if you observe: Fever of 101 or Higher, Coldness, Increased Pain, Numbness or Tingling, Change in Color, Inability to urinate, Inability to have a bowel movement, Shortness of breath, Dizziness, Fainting spells, Swelling in the ankles, Chest pain, Prolonged hiccupping, Increased palpitations (irregular heartbeat) and Calf discomfort Follow Up Care When: IN 2 WEEKS Test Results: Test results from this visit will be discussed in further detail at your follow- up appointment, if applicable. Discharge Plan Admission Admit Date/Time: 12/03/24 08:04 Attending Provider: Bolivar Mccoy Primary Care Provider: Hermilo Mitchell Instructions Additional Instructions / Restrictions: Advised [id number], probiotic; lactobacillus/acidophilus 1 tablet twice daily for 1 week. MiraLAX 17 g, [id number] once daily as needed for constipation. Discharge Orders/Prescriptions Prescriptions: New sennosides-docusate sodium [Stimulant Laxative Plus] 8.6-50 mg Tablet 2 tab PO BID 30 Days Qty: 120 0RF Rx Instructions: [id number] amoxicillin-pot clavulanate 875-125 mg tablet 1 tab PO BID 5 Days Qty: 10 0RF polyethylene glycol 3350 [Miralax] 17 gram/dose powder 17 g PO DAILY 30 Days Qty: 510 0RF pantoprazole 40 mg Tablet,Delayed Release (Dr/Ec) 40 mg PO DAILY 30 Days Qty: 30 1RF Continued oxycodone-acetaminophen 5-325 mg tablet 1 tab PO Q6H PRN PRN (Reason: pain) ondansetron 4 mg tablet,disintegrating 4 mg PO TID PRN PRN (Reason: nausea/vomiting) Discontinued fluconazole 200 mg tablet 200 mg PO DAILY Qty: 1 0RF Rx Instructions: do not take until day AFTER completing CIPROFLOXACIN, and only if symptoms of vaginal osmar persist sulfamethoxazole-trimethoprim 800-160 mg tablet 1 tab PO BID Referrals / Follow Up: Hermilo Mitchell MD [Primary Care Provider, Family Practice] - Within 2 Weeks Referral Note: Advised follow-up with GI for EGD and colonoscopy Disposition Disposition (needs filled in before D/C Order can be placed): Home, Self Care
--- NOTE | 2024-12-05 14:44 | DS.PCM_ITS ---
Providers Date of Admission: 12/03/24 Date of Discharge: 12/05/24 Primary Care Physician: Dr. Hermilo Mitchell MD Reason For Visit: STERCORAL COLITIS Diagnosis Discharge Diagnosis (1) Stercoral colitis: Status: Acute Code(s): K52.89 - Other specified noninfective gastroenteritis and colitis (2) Acute flank pain: Status: Acute Code(s): R10.9 - Unspecified abdominal pain Plan Patient is 59-year-old female admitted for bilateral flank pain, generalized abdominal pain and CT showing mild stercoral colitis 1. Bilateral flank pain, right more than left, abdominal pain probably from stercoral colitis, pyelonephritis ruled out.: Patient is being admitted to [facility] floor. She had CT abdomen with IV contrast in ED, which showed thickened stomach probably gastritis, large amount of fecal residue seen large bowel with mild stercoral colitis, uncomplicated colonic diverticulosis and mild free fluid in the pelvis. Bilateral kidneys no stones or hydronephrosis. Does not seem inflammation/infiltration into perinephric space but not reported in CT. Bilateral kidney and bladder ultrasound, right upper quadrant sonogram ordered. Plan: IV fluid, pain control, antibiotic Unasyn IV and laxatives/stool softener ordered. IV pantoprazole ordered. Urine culture ordered. 12/04: Leukocytosis improving. Patient had good bowel movement continue stool softener. Right upper quadrant sonogram shows surgical cholecystectomy otherwise normal. Renal ultrasound also done reported normal. I think patient has right-sided muscular pain. Continue IV antibiotic for stercoral colitis. Pyelonephritis ruled out. Urine culture pending. 12/05: Tenderness has much improved. RUQ sonogram shows shows no suspicious ultrasound finding and similarly renal ultrasound shows no obstructive uropathy with unremarkable kidneys. I think patient has muscular tenderness of the right back muscles. She moved her bowels good. Advised continue qdxm-[id number]-gyysksx senna S2 tablet twice daily and MiraLAX 17 formalities. Follow with PCP. 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 Advised EGD in 1 month for gastritis and colonoscopy is screening as per the PCP. 2. Mild leukocytosis mainly neutrophils probably due to inflammation/sterile coral colitis. Continue monitor 12/05: Decreasing trend. No signs of fever. 3. Recent UTI: Patient was on Cipro started in urgent care and then changed to Bactrim DS on 11/28, ED visit. She states currently no increased frequency urgency or burning micturition. No purulent discharge in urine. UA WBC 0-5, RBC 0 LE 100, nitrite negative. 4. DVT prophylaxis, moderate risk: Lovenox 40 mg subcu daily ordered Discharge medication reconciliation done. Discharge follow-up instructions completed. Discharge process discussed with the patient and all questions were answered to patient's satisfaction. Follow with PCP in 1 to 2 weeks Total time spent, exact 35 minutes on discharge meds reconciliation, examination, coordination of care with nurses and ancillary staff, review of imaging and blood test and discussion with the patient on follow-up instructions. Living will/advanced directive/end of life care: Patient does not have living will or advanced directive. She does not need a power of erisa attorney for health after discussion of benefits/risks procedures involved with full code, DNR CC arrest and DNR CC, the patient opted for full code. Patient does want artificial life support including intubation, tube feed, ventilator and/chest compression, central venous catheter, vasopressor and DC shock if needed Abdomen/Pelvis CT 12/03/24 06:00 IMPRESSION: Prior splenectomy. Thickened stomach, probably gastritis. Uncomplicated colonic diverticulosis. Moderate amount of fecal residue in the large bowels, probably constipation. Associated mild stercoral colitis is noted in the interim. Hepatic steatosis. Interval appearance of mild amount of free fluid in the pelvis. Abdomen Ultrasound 12/03/24 10:11 IMPRESSION: No suspicious sonographic findings Renal Ultrasound 12/03/24 10:11 IMPRESSION: Unremarkable kidneys with no obstructive uropathy. Reading Location: [place] [id number] Laboratory Results 12/03/24 04:44: WBC 15.8 H, RBC 4.44, Hgb 13.5, Hct 39.9, MCV 89.9, MCH 30.4, MCHC 33.8, RDW Std Deviation 47.9 H, RDW Coeff of Nan 14.6, Plt Count 560 H, MPV 10.3, Immature Gran % (Auto) 1.300 H, Neut % (Auto) 54.1, Lymph % (Auto) 33.2, [place] % (Auto) 7.5, Eos % (Auto) 2.5, Baso % (Auto) 1.4 H, Absolute Neuts (auto) 8.6 H, Absolute Lymphs (auto) 5.25 H, Nucleated RBC % 0, Differential Comment SCANNED, Platelet Estimate MOD INC, RBC Morphology NORM C+C, Sodium 135, Potassium 5.0, Chloride 102, Carbon Dioxide 19.5 L, Anion Gap 13, BUN 9, C reatinine 0.68 L, Estim Creat Clear Calc 67.08, Est GFR (MDRD) Non-Af 100, BUN/Creatinine Ratio 13.8, Glucose 139 H, Lactic Acid 1.1, Calcium 9.3, Total Bilirubin 0.26, Direct Bilirubin < 0.08, AST 35 H, ALT 34, Alkaline Phosphatase 112 H, Total Protein 7.6, Albumin 3.7, Globulin 3.9, Lipase 26 12/03/24 05:35: Urine Color Yellow, Urine Clarity Clear, Urine pH 6.0, Ur Specific [place] 1.015, Urine Protein Negative, Urine Glucose (UA) Normal, Urine Ketones Negative, Urine Occult Blood 25 H, Urine Nitrite Negative, Urine Bilirubin Negative, Urine Urobilinogen Normal, Ur Leukocyte Esterase 100 H, Urine RBC 0-5 SEEN, Urine WBC 0-5 SEEN, Ur Squamous Epith Cells 0-5 SEEN, Amorphous Sediment 1+, Urine Bacteria 2+, Urine Mucus 1+ Clinical Impression(s) from Imaging Studies Abdomen/Pelvis CT 12/03/24 06:00 IMPRESSION: Prior splenectomy. Thickened stomach, probably gastritis. Uncomplicated colonic diverticulosis. Moderate amount of fecal residue in the large bowels, probably constipation. Associated mild stercoral colitis is noted in the interim. Hepatic steatosis. Interval appearance of mild amount of free fluid in the pelvis. [facility] Medications at Discharge Home Medications ondansetron 4 mg disintegrating tablet 4 mg PO TID PRN PRN nausea/vomiting 12/03/24 oxycodone-acetaminophen 5 mg-325 mg tablet 1 tab PO Q6H PRN PRN pain 12/03/24 amoxicillin 875 mg-potassium clavulanate 125 mg tablet 1 tab PO BID 5 days #10 tabs 12/05/24 pantoprazole 40 mg tablet,delayed release 40 mg PO DAILY 1 month #30 tabs 12/05/24 polyethylene glycol 3350 17 gram/dose oral powder (Miralax) 17 g PO DAILY 1 month #510 grams 12/05/24 sennosides 8.6 mg-docusate sodium 50 mg tablet (Stimulant Laxative Plus) 2 tab PO BID 30 days #120 tabs 12/05/24 Hospital Course Summary of Care Provided Hospital Course: Clinical Impression(s) from Imaging Studies Abdomen/Pelvis CT 12/03/24 06:00 IMPRESSION: Prior splenectomy. Thickened stomach, probably gastritis. Uncomplicated colonic diverticulosis. Moderate amount of fecal residue in the large bowels, probably constipation. Associated mild stercoral colitis is noted in the interim. Hepatic steatosis. Interval appearance of mild amount of free fluid in the pelvis. [id number] Abdomen Ultrasound 12/03/24 10:11 IMPRESSION: No suspicious sonographic findings Reading Location: [id number] Renal Ultrasound 12/03/24 10:11 IMPRESSION: Unremarkable kidneys with no obstructive uropathy. Reading Location: [place] [address] Physical Exam Narrative Seen and examined Flank pain has resolved. Mild muscle soreness. Patient was daughterly at the bedside She moved her bowels Physical exam General: Alert, Oriented x3, Cooperative HEENT: Atraumatic, PERRLA, EOMI, Normocephalic. Oral: Oral mucosa dry no Gingival or Mucosal Lesions/ Ulcerations Neck: Supple, No JVD, Negative Carotid Bruits Chest wall/Lungs. No specific reproducible muscle tenderness. Air entry diminished in bilateral lung bases. No crepitation/rhonchi Cardiovascular: Regular rate and rhythm, Normal S1,S2, No M/G/R Abdomen: Bowel Sounds present, Soft, tenderness improved on epigastrium. No rebound tenderness. No distention : No dysuria. Bilateral, R > L, renal angle tenderness. No suprapubic tenderness. Extremities: No edema, Capillary Refill Less than 3 Seconds Skin: No rashes, No breakdown Musculoskeletal: No Tenderness to Palpation of Joints or Extremities Neurological: Cranial nerves II-XII grossly intact, DTR 2+/4. No acute focal neurological deficit. Psych/Mental Status: Normal Affect, Appropriate. Medical Records Data Medical Nutrition Assessment Dietitian: Malnutrition Criteria Met Start: 12/03/24 13:47 Freq: Status: Active Protocol: Document 12/03/24 16:22 RMA (Rec: 12/03/24 16:23 RMA [id number]) Nutrition Malnutrition Evidence of Yes Malnutrition Exists Malnutrition ( Acute Illness/Injury,Chronic moderate): Evidenced By Suboptimal Energy Intake (Moderate),Weight Loss ( Moderate),Physical Changes (Moderate) Intake Problem Inadequate Oral Intake Etiology related to altered GI function Signs/Symptoms as evidenced by NPO advanced to full liquid diet Status Active Problem Clinical Problem Acute Disease or Injury Related Malnutrition Etiology Moderate protein-calorie malnutrition in the context of acute on chronic condition related to chewing difficulty and altered GI function Signs/Symptoms as evidenced by edentulous on top plate, NPO/full liquid diet, BMI 18.6, ~9% unintentional weight loss x 12 months, muscle wasting and fat depletion noted in the clavicle, orbitals, temporal region, arms, face, legs and PO meeting less than 75% estimated nutrition needs x past 3-6 months. Status Active Problem Recommendation Dietitian Advance diet as tolerated to Regular; with soft food as Recommendations/ needed. Changes Will add 240mL ensure clear TID w/ meals as tolerated. Trend weight closely and adjust ONS as needed to support weight gain. Weight / BMI Weight Weight: 114 lb 10.246 oz Body Mass Index (BMI) 20.2 ABG / Lab / Microbiology Data 12/04/24 06:15 12/04/24 06:15 D/C Instructions Weight Bearing Status: Weight bearing as tolerated Call your doctor if you observe: Fever of 101 or Higher, Coldness, Increased Pain, Numbness or Tingling, Change in Color, Inability to urinate, Inability to have a bowel movement, Shortness of breath, Dizziness, Fainting spells, Swelling in the ankles, Chest pain, Prolonged hiccupping, Increased palpitations (irregular heartbeat) and Calf discomfort DC O2, CPAP, BIPAP Needs Home O2 Discharge instructions: No When: IN 2 WEEKS Meaningful Use Info Meaningful Use Meaningful Use Diagnoses (Choose all that apply): None applicable Discharge Plan Admission Admit Date/Time: 12/03/24 08:04 Attending Provider: Bolivar Mccoy Primary Care Provider: Hermilo Mitchell Instructions Additional Instructions / Restrictions: Advised [id number], probiotic; lactobacillus/acidophilus 1 tablet twice daily for 1 week. MiraLAX 17 g, [id number] once daily as needed for constipation. Discharge Orders/Prescriptions Prescriptions: New sennosides-docusate sodium [Stimulant Laxative Plus] 8.6-50 mg Tablet 2 tab PO BID 30 Days Qty: 120 0RF Rx Instructions: [id number] amoxicillin-pot clavulanate 875-125 mg tablet 1 tab PO BID 5 Days Qty: 10 0RF polyethylene glycol 3350 [Miralax] 17 gram/dose powder 17 g PO DAILY 30 Days Qty: 510 0RF pantoprazole 40 mg Tablet,Delayed Release (Dr/Ec) 40 mg PO DAILY 30 Days Qty: 30 1RF Continued oxycodone-acetaminophen 5-325 mg tablet 1 tab PO Q6H PRN PRN (Reason: pain) ondansetron 4 mg tablet,disintegrating 4 mg PO TID PRN PRN (Reason: nausea/vomiting) Discontinued fluconazole 200 mg tablet 200 mg PO DAILY Qty: 1 0RF Rx Instructions: do not take until day AFTER completing CIPROFLOXACIN, and only if symptoms of vaginal osmar persist sulfamethoxazole-trimethoprim 800-160 mg tablet 1 tab PO BID Referrals / Follow Up: Hermilo Mitchell MD [Primary Care Provider, Family Practice] - Within 2 Weeks Referral Note: Advised follow-up with GI for EGD and colonoscopy Disposition Disposition (needs filled in before D/C Order can be placed): Home, Self Care Charges/Coding Visit Charges Inpatient E&M: 40979 Disch Hosp >30min
[2024-12-05 15:50] VITALS: BP 103/59; PULSE 73; RESP 18; TEMP 36.6; O2SAT 97
== END 2024-12-05 16:05 | disposition home or self-care (01) | DRG 392 ==
LOC: ED 08:11 → MS3 09:00
PROVIDERS: Admitting Provider Internal Medicine; Emergency Provider Emergency Medicine; PCP Family Medicine; Visit Provider Internal Medicine
DX: K52.89 Other specified noninfective gastroenteritis and colitis (principal); E44.0 Moderate protein-calorie malnutrition; F17.210 Nicotine dependence, cigarettes, uncomplicated; K29.70 Gastritis, unspecified, without bleeding; Z68.20 Body mass index [BMI] 20.0-20.9, adult
CPT/HCPCS: 36415; 74177; 76705; 76770; 80048; 80076; 81001; 83036; 83605; 83690; 83735; 84100; 84439; 84443; 85025; 87086; 87088; 94668; 97802; 99283; 99406; Q9967; A4216; J0295; J2405